=== PATIENT | male | born 1955 | race Caucasian/White ===

== ENCOUNTER 2019-08-22 10:59 | Emergency (ER) | payer MEDICARE, MEDICAID, SELFPAY ==
[2019-08-22 11:15] VITALS: BP 154/81; PULSE 76; RESP 20; TEMP 37.2; O2SAT 99; BMI 31.7
--- NOTE | 2019-08-22 12:02 | ED.ANXIETY ---
HPI - Anxiety <DEYVI Chauhan - Last Filed: 08/22/19 15:00> General Chief Complaint: Anxiety Stated Complaint: exposed to covid,memory loss, neck pain Time Seen by Provider: 08/22/19 11:41 Source: patient Mode of arrival: Ambulatory Limitations: no limitations History of Present Illness HPI narrative: The patient is a 63-year-old male current smoker who denies pertinent medical history who presents with a chief complaint of I have not seen a doctor in 10 years and would like everything checked out.He denies any new or current fevers nausea vomiting or diarrhea. Denies any new or current chest pain or shortness of breath. Denies any recent fall or trauma. States he does feel anxious given that his living situation is changing at this point time. He states he is losing his housing, plans on moving to [facility] with his girlfriend. Denies any thoughts of hurting himself or anybody else. States that he would like a ?complete head-to-toe physical and to make sure I am up-to-date on everything. Related Data Previous Rx's Medication Instructions Recorded hydroxyzine HCl 25 mg PO TID PRN #14 tab 08/22/19 Review of Systems <DEYVI Chauhan - Last Filed: 08/22/19 15:00> Review of Systems Narrative: GENERAL: Denies chills, fatigue, malaise, fever, sweats. HEENT: Denies sinus pain, ear pain, sore throat, difficulty swallowing, dizziness. RESPIRATORY: Denies dyspnea, cough, wheezing, hemoptysis, sputum. CARDIOVASCULAR: Denies chest pain, palpitations, orthopnea, edema, GASTROINTESTINAL: Denies nausea, vomiting, abdominal pain, diarrhea, constipation, melena. : Denies dysuria, frequency, incontinence, hematuria, urinary retention. MUSCULOSKELETAL: denies weakness, joint pain, or bony pain SKIN: Denies rash, skin lesions, or other NEUROLOGIC: Denies weakness, headache, numbness, change in speech, confusion, seizures, incoordination. PSYCHIATRIC: See HPI 12 point review of systems is negative except for those stated above 12 point review of systems is negative except for those stated above Patient History <DEYVI Chauhan - Last Filed: 08/22/19 15:00> Social History Smoking Status: Current every day smoker Smoking Status: Current every day smoker alcohol intake frequency: 0-2 drinks per day Substance Use Type: marijuana Exam <DEYVI Chauhan - Last Filed: 08/22/19 15:00> Narrative Exam Narrative: GENERAL: Unkempt elderly appearing male HEAD: Atraumatic. Normocephalic. No temporal or scalp tenderness. EYES: Pupils equal round and reactive. Extraocular motions intact. No scleral icterus. No injection or drainage. ENT: Nose without bleeding, purulent drainage or septal hematoma. Airway patent. NECK: Trachea midline. No JVD or lymphadenopathy. Supple, nontender, no meningeal signs. CARDIOVASCULAR: Regular rate and rhythm RESPIRATORY: Clear to auscultation. Breath sounds equal bilaterally. No wheezes, rales, or rhonchi. GASTROINTESTINAL: Abdomen soft, non-tender, nondistended. No hepato-splenomegaly, or palpable masses. No guarding. Active bowel sounds all 4 quadrants EXTREMITIES: No clubbing, cyanosis, or edema. No joint tenderness, effusion, or edema noted. BACK: Nontender without deformity or crepitance. No flank tenderness. NEURO: AOx3. Follows commands. Three word recall intact, including at [address] and situation. SKIN: No rash or erythema on visible skin Initial Vital Signs Initial Vital Signs: Vital Signs Temperature 98.9 F 08/22/19 11:15 Pulse Rate 76 08/22/19 11:15 Respiratory Rate 08/22/19 11:15 Blood Pressure 154/81 H 08/22/19 11:15 Pulse Oximetry 99 08/22/19 11:15 <Yary Norman DO - Last Filed: 08/26/19 07:04> Initial Vital Signs Initial Vital Signs: Vital Signs Temperature 98.9 F 08/22/19 11:15 Pulse Rate 76 08/22/19 11:15 Respiratory Rate 08/22/19 11:15 Blood Pressure 154/81 H 08/22/19 11:15 Pulse Oximetry 99 08/22/19 11:15 Scores <DEYVI Chauhan - Last Filed: 08/22/19 15:00> GCS [place] coma scale eye opening: Spontaneous Fang coma scale verbal response: Orientated Fang coma scale motor response: Obey commands [place] coma scale total score: 15 Course <IVANNA Chauhan-BC - Last Filed: 08/22/19 15:00> Orders Ordered: Discontinued Medications Hydroxyzine Pamoate (Vistaril) 25 mg PO NOW ONE Stop: 08/22/19 12:01 Last Admin: 08/22/19 12:13 Dose: 25 mg Documented by: OBDULIA Vital Signs Vital signs: Vital Signs - 8 hr 08/22/19 11:15 08/22/19 13:11 Temperature 98.9 F Pulse Rate 76 65 Respiratory Rate 20 14 Blood Pressure 154/81 H 137/79 Pulse Oximetry 99 99 <Yary Norman DO - Last Filed: 08/26/19 07:04> Orders Ordered: Discontinued Medications Hydroxyzine Pamoate (Vistaril) 25 mg PO NOW ONE Stop: 08/22/19 12:01 Last Admin: 08/22/19 12:13 Dose: 25 mg Documented by: OBDULIA Vital Signs Vital signs: Vital Signs - 8 hr 08/22/19 11:15 08/22/19 13:11 Temperature 98.9 F Pulse Rate 76 65 Respiratory Rate 20 14 Blood Pressure 154/81 H 137/79 Pulse Oximetry 99 99 MDM - Anxiety <IVANNA Chauhan-BC - Last Filed: 08/22/19 15:00> MDM Narrative Medical decision making narrative: The patient is a 63-year-old male who presents with chief complaints of wanting ?a head to toe physical.Emergency department evaluation came back with no acute findings. He is GCS 15. His anxiety responded well to hydroxyzine, so I did give him a prescription. Patient did not want lab work today as I discussed that I was unable to check his cholesterol etcetera. Encouraged him to follow up with primary care provider in the next few days. Given contact information [facility] health resource efficiency manager. Patient has no questions or concerns upon discharge and states understanding of return precautions as well as follow-up care. I discussed come back to the emergency department for any acute concerns such as thoughts of hurting himself or anybody else. Patient was hemodynamically stable, vital signs stable throughout her stay in the emergency department. Discharge Plan Departure Patient Disposition: Home Clinical Impression: Acute anxiety Discharge Date/Time: 08/22/19 13:11 Instructions: DI for Anxiety -- Adult Activity Restrictions/Additional Instructions: Thank you for trusting us with your care today As discussed, your vital signs are did, your memory during exam was very positive. Please follow-up with primary care provider regarding the changes that you have noticed over the past several years. I sent a prescription of hydroxyzine for anxiety to [facility] Please come back to the emergency department for any acute concerns such as thoughts of hurting yourself or anybody else Prescriptions: New hydroxyzine HCl 25 mg tablet 25 mg PO TID PRN (Reason: anxiety ) Qty: 14 RF: 0 Referrals: [facility] [Outside] <Yary Norman DO - Last Filed: 08/26/19 07:04> [facility] ED Attending Ranjana Attestation: I was immediately available in the department for consultation. Documentation has been reviewed. I agree with assessment and plan.
[2019-08-22] MEDS: hydrOXYzine pamoate 25 MG CAPSULE PO (12:13)
[2019-08-22 13:11] VITALS: BP 137/79; PULSE 65; RESP 14; O2SAT 99
== END 2019-08-22 13:11 | disposition home or self-care (01) ==
PROVIDERS: Emergency Provider Nurse Practitioner Family
DX: F41.9 Anxiety disorder, unspecified (principal)
CPT/HCPCS: 93005; 93010; 99282; 99283

== ENCOUNTER 2021-08-21 12:38 | Emergency (ER) | payer OTHER, MEDICAID, SELFPAY ==
[2021-08-21 12:44] VITALS: BP 140/87; PULSE 80; RESP 16; TEMP 36.3; O2SAT 97; BMI 34.3
--- NOTE | 2021-08-21 12:48 | DI.RAD.S_ITS ---
PROCEDURE: XR FOOT LT MIN 3V INDICATIONS: thinks something is in his foot TECHNIQUE: 3 views of the foot were acquired. COMPARISON: None. FINDINGS: Bones: There is a minimally displaced fracture of the tuft of the 2nd distal phalanx. Mild scattered degenerative changes are seen in the toes. There is a small plantar calcaneal enthesophyte. No suspicious bony lesions. Soft tissues: Calcifications are seen along the course of the Achilles tendon. Soft tissue edema is seen in the 2nd toe. IMPRESSION: Minimally displaced fracture of the tuft of the 2nd distal phalanx. Dictated by: Frederic Funes M.D. on 08/21/2021 at 13:19 Approved by: Frederic Funes M.D. on 08/21/2021 at 13:20
[2021-08-21 15:15] VITALS: BP 135/74; PULSE 83; RESP 18; O2SAT 99
[2021-08-21] MEDS: TRIMETH/SULFA 160/800 (DS) TABLET 1 TAB PO (15:26)
[2021-08-21] MEDS: LIDO 1%/SOD BICARB 8.4% (10ML) 10 ML SYRINGE INJ (15:27)
[2021-08-21] MEDS: KETOROLAC 30 MG/ML VIAL 15 MG IM (15:27)
--- NOTE | 2021-08-21 15:27 | ED_ITS ---
HPI - Extremity Injury (Lower) <CM Landers - Last Filed: 08/21/21 18:41> General Chief Complaint: Extremity Injury, Lower Stated Complaint: Something in foot Time Seen by Provider: 08/21/21 14:21 Source: patient Mode of arrival: Wheelchair History of Present Illness HPI Narrative: This is a 65-year-old male who denies any history of diabetes and presents to the emergency department for reported foreign body in the bottom of his left foot. He reports that he stepped on something a few days ago and now has redness and inflammation up his ankle, worsening pain where he stepped on something, states it did not come out. Reports his last tetanus was three or four years ago, reports that the pain is significant and he was unable to sleep last night. He says that he is still ambulatory but it hurts when he bears weight on the plantar aspect of his left foot. He states that he does not have any prior medical history and is ?healthy as a horse.? He has a primary care provider but reports that he is never seen her before. Patient reports that he has been out walking around in the dirt, remembers stepping on something and having pain still there over the last few days but does not remember what it was. Denies any ankle joint pain, endorses a known toe fracture on his 2nd distal phalanx left foot. Patient denies having any medication allergies. Patient reports that he was barefoot when he stepped on something outside and the foreign body did not go through a sole of his shoe. Reports that he walks around barefoot often. Related Data Previous Rx's Medication Instructions Recorded hydroxyzine HCl 25 mg tablet 25 mg PO TID PRN anxiety #14 tabs 08/22/19 hydrocodone 5 mg-acetaminophen 325 1 tab PO BID PRN pain #10 tabs 08/21/21 mg tablet mupirocin 2 % topical ointment 1 applic topical BID 7 days #15 08/21/21 grams sulfamethoxazole 800 1 tab PO BID 7 days #14 tabs 08/21/21 mg-trimethoprim 160 mg tablet (Bactrim DS) Allergies Allergy/AdvReac Type Severity Reaction Status Date / Time No Known Drug Allergies Allergy Verified 08/21/21 12:43 Review of Systems <CM Landers - Last Filed: 08/21/21 18:41> Review of Systems Narrative: General: denies fever, chills Head/Neck: denies headache, neck pain Eyes: denies visual changes, eye pain Cardio: denies chest pain, palpitations Respiratory: denies shortness of breath, cough GI: denies abdominal pain, nausea, vomiting, or diarrhea : denies dysuria, hematuria or flank pain MSK: denies new joint pain, muscle weakness or swelling Skin: denies rash, itching, endorses wound to the bottom of his left foot with possible foreign body, tenderness and pain Neuro: denies numbness, tingling, dizziness Patient History <CM Landers - Last Filed: 08/21/21 18:41> Social History Smoking Status: Current every day smoker Smoking Status: Current every day smoker alcohol intake frequency: 0-2 drinks per day Substance Use Type: marijuana Exam <CM Landers - Last Filed: 08/21/21 18:41> Narrative Exam Narrative: Independently reviewed vitals signs and nursing notes. General: cooperative, comfortable, in no acute distress, feet are soiled, close are slightly dirty, patient does not appear in distress but complains of pain Head: atraumatic, symmetrical facial expressions Neck: supple Eyes: equal round and reactive, EOMI, conjunctiva normal Nose: nares patent, no rhinorrhea Mouth/Throat: moist mucus membranes Cardiovascular: regular rate and rhythm, no peripheral edema, warm extremities Respiratory: normal effort, able to speak in complete sentences, no audible wheezing, stridor, or rales. No retractions or tachypnea. GI: abdomen soft, protuberant, nontender to palpation, nondistended, no masses, no exquisite tenderness with exam, without guarding or rebound. MSK: moves all extremities, neurovascularly intact, no weakness, normal tone, able to move all toes without deficit, no sensation changes, erythematous/edematous pustule verses imbedded foreign body to the plantar aspec t of his left foot, cellulitis along the medial aspect and tracking up his ankle. Skin: brisk capillary refill, plantar aspect of patient's forefoot has approximate 2 cm abscess with darkened center concerning for foreign body, x-ray does not show any evidence of foreign body in this location, injection of lidocaine 1% and small incision with scalpel cause copious purulent drainage to come out of the wound, a visible shard of metal was visible and removed. It was approximately half a cm long, and vertically oriented plantar aspect of his foot. Irrigation of the wound was completed, pus was expressed out of the wound, and no other foreign bodies were visible. Patient reports that it feels much better already. Neuro: normal speech and cognition, A&O x3 Psych: mental status is grossly normal, congruent mood, normal affect, pleasant and cooperative Initial Vital Signs Initial Vital Signs: Vital Signs Temperature 97.3 F L 08/21/21 12:44 Pulse Rate 80 08/21/21 12:44 Respiratory Rate 16 08/21/21 12:44 Blood Pressure 140/87 08/21/21 12:44 Pulse Oximetry 97 08/21/21 12:44 Oxygen Delivery Method 08/21/21 12:44 <Qasim Gracia DO - Last Filed: 08/22/21 14:31> Initial Vital Signs Initial Vital Signs: Vital Signs Temperature 97.3 F L 08/21/21 12:44 Pulse Rate 80 08/21/21 12:44 Respiratory Rate 16 08/21/21 12:44 Blood Pressure 140/87 08/21/21 12:44 Pulse Oximetry 97 08/21/21 12:44 Oxygen Delivery Method 08/21/21 12:44 Procedures <CM Landers - Last Filed: 08/21/21 18:41> Foreign Body OTHER Time Out Performed: yes Foreign Body Removal Site: foot Description of foreign body: other (metal) Sedation/Analgesia: none Technique: manual removal, removal with forceps, incision made to facilitate removal and irrigation Confirmed by:: direct visualization, radiograph and palpation Complications: none Post-procedure exam: awake, alert, normal BP, normal HR and normal O2 sat Neurovascular: normal distal pulse, normal capillary fill, distal light touch sensation intact, distal motor function normal and no change from pre-procedure Orthopedic Splinting/Casting Injury #1: Lower Extremity Injury Location: foot Lower Extremity Immobilizer: post-op shoe Post splinting neuro exam: intact and no change Post splinting vascular exam: no change Placed by: Nursing Course <CM Landers - Last Filed: 08/21/21 18:41> Orders Ordered: Discontinued Medications Diphtheria/Tetanus/Acell Pertussis (Tet,Diph,Pertuss(Acell),Vac/Pf 0.5 Ml Syringe) 0.5 ml IM .ONCE ONE Stop: 08/21/21 15:54 Last Admin: 08/21/21 15:59 Dose: 0.5 ml Documented By: MEET Ketorolac Tromethamine (Ketorolac 30 Mg/Ml Vial) 15 mg IM NOW ONE Stop: 08/21/21 15:20 Last Admin: 08/21/21 15:27 Dose: 15 mg Documented By: ESTRADA Lidocaine/Sodium Bicarbonate (Lido 1%/Sod Bicarb 8.4% (10ml) 10 Ml Syringe) 10 ml INJ NOW ONE Stop: 08/21/21 15:20 Last Admin: 08/21/21 15:27 Dose: 10 ml Documented By: ESTRADA Trimethoprim/Sulfamethoxazole (Trimeth/Sulfa 160/800 (Ds) Tablet) 1 tab PO NOW ONE Stop: 08/21/21 15:20 Last Admin: 08/21/21 15:26 Dose: 1 tab Documented By: ESTRADA Vital Signs Vital signs: Vital Signs - 8 hr 08/21/21 12:44 08/21/21 15:15 Temperature 97.3 F L Pulse Rate 80 83 Respiratory Rate 16 18 Blood Pressure 140/87 135/74 Pulse Oximetry 97 99 Oxygen Delivery Method Room Air Room Air <Qasim Gracia DO - Last Filed: 08/22/21 14:31> Orders Ordered: Discontinued Medications Diphtheria/Tetanus/Acell Pertussis (Tet,Diph,Pertuss(Acell),Vac/Pf 0.5 Ml Syringe) 0.5 ml IM .ONCE ONE Stop: 08/21/21 15:54 Last Admin: 08/21/21 15:59 Dose: 0.5 ml Documented By: MEET Ketorolac Tromethamine (Ketorolac 30 Mg/Ml Vial) 15 mg IM NOW ONE Stop: 08/21/21 15:20 Last Admin: 08/21/21 15:27 Dose: 15 mg Documented By: ESTRADA Lidocaine/Sodium Bicarbonate (Lido 1%/Sod Bicarb 8.4% (10ml) 10 Ml Syringe) 10 ml INJ NOW ONE Stop: 08/21/21 15:20 Last Admin: 08/21/21 15:27 Dose: 10 ml Documented By: ESTRADA Trimethoprim/Sulfamethoxazole (Trimeth/Sulfa 160/800 (Ds) Tablet) 1 tab PO NOW ONE Stop: 08/21/21 15:20 Last Admin: 08/21/21 15:26 Dose: 1 tab Documented By: ESTRADA Vital Signs Vital signs: Vital Signs - 8 hr 08/21/21 12:44 08/21/21 15:15 Temperature 97.3 F L Pulse Rate 80 83 Respiratory Rate 16 18 Blood Pressure 140/87 135/74 Pulse Oximetry 97 99 Oxygen Delivery Method Room Air Room Air MDM - Extremity Injury (Lower) <Nilsa Farnsworth, [facility] - Last Filed: 08/21/21 18:41> Imaging Data Extremity x-ray #1: Radiologist's Impression: PROCEDURE:? XR FOOT LT MIN 3V ? INDICATIONS:? thinks something is in his foot ? TECHNIQUE:? 3 views of the foot were acquired.? ? COMPARISON:? None. ? FINDINGS:? ? Bones:? There is a minimally displaced fracture of the tuft of the 2nd distal phalanx.? Mild scattered degenerative changes are seen in the toes.? There is a small plantar calcaneal enthesophyte.? No suspicious bony lesions.? ? Soft tissues:? Calcifications are seen along the course of the Achilles tendon.? Soft tissue edema is seen in the 2nd toe. ? ? IMPRESSION:? Minimally displaced fracture of the tuft of the 2nd distal phalanx. ? ? ? Dictated by: Frederic Funes M.D. on 08/21/2021 at 13:19 ? ? Approved by: Frederic Funes M.D. on 08/21/2021 at 13:20 ? [facility] Narrative Medical decision making narrative: This is a 65-year-old male presents to the emergency department for a foreign body in the plantar aspect of his left forefoot. Patient does not have a history of diabetes, denies taking any medications at baseline, x-ray was obtained of his left foot for concern about stepping on something sharp barefoot approximately four days ago. Patient has a known tuft fracture of the 2nd distal phalanx, foot x-ray identified this but did not show any foreign body, showed scattered degenerative changes in the toes and a small plantar calcaneal enthesophyte., patient's foot was soaked in Hibiclens, it was scrubbed, he had visibly soiled feet. He had a 2 cm abscess in the plantar aspect of his forefoot/midfoot, had a darkened center with concern for foreign body, a small incision was made after numbed up with 1 mL of lidocaine, pus came out of the wound, this was obtained for culture. When squeezing up the remainder of drainage from the wound, a small metal foreign body was removed, it was approximately half a cm and vertically oriented in the plaster aspect of his foot. States that he stepped on this barefoot, did not go through all of his shoe. Denies any history of MRSA, denies any other skin infections. Wound culture g stain shows GPCs. His tetanus was updated since he did not remember exactly when he had his last one. Patient has mild amount of cellulitis coming up the medial ankle, no other wounds. Patient was fitted in a postop shoe, encouraged to keep this clean, wash it twice a day, cover with mupirocin ointment which he was prescribed. He was given Bactrim b.i.d. for one week for wound prophylaxis and treatment of his cellulitis. He was given stockroom coordinator contact information and encouraged to follow-up in the next 2-3 days with Podiatry for recheck. Patient states understanding, was given strict return precautions, will return to the emergency department for worsening changes. Patient is appropriate and amenable to discharge home. Vital signs are stable on repeat examination is unremarkable. Patient has been informed of results. Patient has been given strict return to ER precautions for any new or worsening symptoms. Patient understands to follow up closely with outpatient providers as instructed. Patient understands plan and agrees to discharge home. All questions and concerns answered at this time. Discharge Plan Departure Patient Disposition: Home Clinical Impression: Foreign body in foot, left Qualifiers: Encounter type: initial encounter Qualified Code(s): S90.852A - Superficial foreign body, left foot, initial encounter Instructions: DI for Removal of Foreign Body From Skin Activity Restrictions/Additional Instructions: *You have been diagnosed with a small piece of metal was removed from your left foot. Please keep your foot clean, wash it with soap and water and do not soak it at least once per day. Please avoid walking around barefoot until this is fully healed. Keep it covered with a Band-Aid and apply a little antibiotic ointment to help keep the germs out. Take this antibiotic twice a day for the next seven days, follow-up with Podiatry as needed. It is possible that there are more small pieces of metal in there that I did not see however I cleaned it out fairly well and did not find any other pieces. Please keep your foot elevated, ice it, drink plenty of water, return to the emergency department for any worsening signs of infection. Please wear the postop shoe with a clean sock and something reasonable in between for it to drain on. *What to do: *Please continue to take your regular medications as directed. [ x] New medication prescriptions sent to your pharmacy: [] [ ] New medication written as a paper prescription [ ] No new medications given *Please follow up with your primary care provider in 2-3 days, call for an appointment. Let them know you were seen in the Emergency Department and that we asked that you be seen for follow-up. We will electronically transmit a record of today's note if your PCP is in our system *If you do not have a primary care provider please contact [phone] to establish care with one of [facility] primary care providers. *Return to Emergency Department if you should have any new, worsening or concerning symptoms, such as [fever greater than 101F, chills, worsening pain, persistent vomiting or other bothersome symptoms] Prescriptions: New sulfamethoxazole-trimethoprim [Bactrim DS] 800-160 mg tablet 1 tab PO BID 7 Days Qty: 14 0RF mupirocin 2 % ointment 1 applic topical BID 7 Days Qty: 15 0RF hydrocodone-acetaminophen 5-325 mg tablet 1 tab PO BID PRN (Reason: pain) Qty: 10 0RF No Action hydroxyzine HCl 25 mg tablet 25 mg PO TID PRN (Reason: anxiety ) Qty: 14 0RF Referrals: Daniel Roa DPM [Physician] - 3-5 days Visit Report Forms: Patient Portal/API <Qasim Gracia DO - Last Filed: 08/22/21 14:31> Cosign ED Attending Aaliyahature Attestation: I was immediately available in the department for consultation. This documentation has been reviewed and I agree with assessment and plan. Supervised by Qasim Gracia DO
[2021-08-21] MEDS: TET,DIPH,PERTUSS(ACELL),VAC/PF 0.5 ML SYRINGE IM (15:59)
== END 2021-08-21 16:00 | disposition home or self-care (01) ==
PROVIDERS: Emergency Provider Nurse Practitioner Critical Care Medicine
DX: S90.852A Superficial foreign body, left foot, initial encounter (principal)
CPT/HCPCS: 10120; 73630; 87070; 87075; 87077; 87147; 87186; 87205; 90471; 96372; 99284; 90715; J1885

== ENCOUNTER 2021-11-17 14:24 | Emergency (ER) | payer OTHER, MEDICAID, SELFPAY ==
[2021-11-17 14:45] VITALS: BP 119/74; PULSE 83; RESP 24; TEMP 37.1; O2SAT 97; BMI 31.7
--- NOTE | 2021-11-17 14:56 | DI.RAD.S_ITS ---
PROCEDURE: XR RIBS LT MIN 3V W CXR1V INDICATIONS: fall, right rib pain TECHNIQUE: 2 views of the left ribs were acquired, along with a single view chest. COMPARISON: [facility], , CHEST 2VW, 04/20/2012, 12:30. FINDINGS: Surgical changes and devices: None. Bones and chest wall: A marker is placed upon the area of clinical concern. Within this region, there is a mildly displaced fracture of the left 10th rib. No rib fractures are seen elsewhere. (The 12th pair of ribs is vestigial.) No suspicious bony lesions. Age-appropriate bony degenerative changes are seen. Overlying soft tissues appear unremarkable. Lungs and pleura: No pleural effusions or pneumothorax. Lungs appear clear. Mediastinum: Mediastinal contours appear normal. Heart size is normal. IMPRESSION: There is a mildly displaced fracture of the left 10th rib. No associated pneumothorax is seen by plain film. Dictated by: Grzegorz Dickerson M.D. on 11/17/2021 at 15:07 Approved by: Grzegorz Dickerson M.D. on 11/17/2021 at 15:09
--- NOTE | 2021-11-17 15:32 | PC.NURSE ---
Patient went to mail clerk and stated he couldn't breathe and needed oxygen. helped patient back to stretcher. He is very loudly moaning and groaning. Vital signs are stable, oxygen 98% on room air. Patient does appear short of breath and audible wheezing is heard. Respiratory therapy called and EKG performed. Provider notified.
--- NOTE | 2021-11-17 16:22 | ED.FALL ---
HPI - Fall General Chief Complaint: Fall Stated Complaint: fall, difficulty breathing, Lt side back pain Time Seen by Provider: 11/17/21 16:17 Source: patient Mode of arrival: Wheelchair History of Present Illness HPI Narrative: 66-year-old male who states that he was in his kitchen and fell and landed on his left flank on a metal stair. Has significant discomfort with taking a deep breath on his left side. In quite a bit pain. No fevers. No abdominal pain. No other injuries event. Did not hit his head. Prior to the fall did not have palpitations denies shortness of breath nor chest pain. He reports no other injuries from the event except for discomfort along his left flank. Related Data Previous Rx's Medication Instructions Recorded hydroxyzine HCl 25 mg tablet 25 mg PO TID PRN anxiety #14 tabs 08/22/19 hydrocodone 5 mg-acetaminophen 325 1 tab PO BID PRN pain #10 tabs 08/21/21 mg tablet albuterol sulfate 90 mcg/actuation 2 puff inhalation Q6H PRN 11/17/21 aerosol inhaler shortness of breath or wheezing #8.5 grams hydrocodone 5 mg-acetaminophen 325 1 tab PO Q4-6H PRN pain #10 tabs 11/17/21 mg tablet Allergies Allergy/AdvReac Type Severity Reaction Status Date / Time No Known Drug Allergies Allergy Verified 11/17/21 14:49 Review of Systems Review of Systems ROS Unobtainable: All systems reviewed & are unremarkable except as noted in HPI and below Patient History Social History Smoking Status: Current every day smoker Smoking Status: Current every day smoker alcohol intake frequency: 0-2 drinks per day Substance Use Type: marijuana Exam Initial Vital Signs Initial Vital Signs: Vital Signs Temperature 98.8 F 11/17/21 14:45 Pulse Rate 83 11/17/21 14:45 Respiratory Rate 24 11/17/21 14:45 Blood Pressure 119/74 11/17/21 14:45 Pulse Oximetry 97 11/17/21 14:45 Oxygen Delivery Method 11/17/21 14:45 Const General: No comfortable HENMT Head: normal to inspection and normocephalic Chest Other: No anterior chest wall discomfort on the left. Resp Effort & Inspection: no respiratory distress and not tachypneic Other: Splinting Cardio Rate: regular rate GI Other: No abdominal tenderness, Back/Spine/Pelvis Cervical Spine: No cervical spinal tenderness Thoracic/Lumbar Spine: No thoracic spinal tenderness and No lumbar spinal tenderness Skin Other: Bruising along the left flank/paraspinal region on the back Neuro General: patient alert, patient awake and moves all extremities Extrem General: capillary refill normal Psych Appearance: grossly normal Course Orders Ordered: ED Orders 11/17/21 14:56 XR ribs LT min 3V w CXR1V Stat 11/17/21 15:37 EKG-12 Lead Stat Discontinued Medications Hydrocodone Bitart/Acetaminophen (Hydrocodone/Acet 5/325 Tablet) 1 tab PO NOW ONE Stop: 11/17/21 16:23 Last Admin: 11/17/21 16:29 Dose: 1 tab Documented By: EDUARDO Vital Signs Vital signs: Vital Signs - 8 hr 11/17/21 14:45 11/17/21 16:34 Temperature 98.8 F Pulse Rate 83 82 Respiratory Rate 24 22 Blood Pressure 119/74 128/88 Pulse Oximetry 97 98 Oxygen Delivery Method Room Air Room Air MDM - Fall Imaging Data Rib x-ray: Radiologist's Impression: [address] [address] XRay Report Signed Patient: Gunner Vazquez MR#: [id number] : 1955 Acct:[id number] Age/Sex: 66 / M Date of Service: 11/17/21 Loc: ED Accession Number: [id number] ?? Procedure: XR ribs LT min 3V w CXR1V Ordering Provider: Moises La D.O. PROCEDURE:? XR RIBS LT MIN 3V W CXR1V ? INDICATIONS:? fall, right rib pain ? TECHNIQUE:? 2 views of the left ribs were acquired, along with a single view chest.? ? COMPARISON:? [facility], CR, CHEST 2VW, 04/20/2012, 12:30. ? FINDINGS:? ? Surgical changes and devices:? None.? ? Bones and chest wall:? A marker is placed upon the area of clinical concern.? Within this region, there is a mildly displaced fracture of the left 10th rib. ? No rib fractures are seen elsewhere.? (The 12th pair of ribs is vestigial.) ? No suspicious bony lesions.? Age-appropriate bony degenerative changes are seen.? Overlying soft tissues appear unremarkable.? ? Lungs and pleura:? No pleural effusions or pneumothorax.? Lungs appear clear.? ? Mediastinum:? Mediastinal contours appear normal.? Heart size is normal.? ? ? IMPRESSION:? ? There is a mildly displaced fracture of the left 10th rib. ? No associated pneumothorax is seen by plain film. ? ? Dictated by: Grzegorz Dickerson M.D. on 11/17/2021 at 15:07 ? ? Approved by: Grzegorz Dickerson M.D. on 11/17/2021 at 15:09?? ECG Data Attestation: I personally reviewed and interpreted this ECG as follows: Interpretation: Sinus rhythm Ventricular rate is 76 Normal axis Normal QRS Normal QTC No ST T wave changes MDM Narrative Medical decision making narrative: Patient has pinpoint tenderness over his left flank where the bruising is located and also where the rib fractures located on the x-rays. He is clear lung exam. He has no abdominal tenderness. This was a mechanical fall per his report. We discussed rib fractures. States he has had rib fractures in the past. He understands that is going to hurt. Will send home with an incentive spirometer and also pain medication. He was given return precautions. He expressed understanding and agreement. Discharge Plan Departure Patient Disposition: Home Clinical Impression: Fracture of rib of left side Instructions: DI for Rib Fracture Activity Restrictions/Additional Instructions: Use the pain medication as needed. Also recommend you use the incentive spirometer as directed. Return to the emergency department for any new or worsening symptoms. Prescriptions: New hydrocodone-acetaminophen 5-325 mg tablet 1 tab PO Q4-6H PRN (Reason: pain) Qty: 10 0RF albuterol sulfate 90 mcg/actuation HFA aerosol inhaler 2 puff inhalation Q6H PRN (Reason: shortness of breath or wheezing) Qty: 8.5 0RF No Action hydrocodone-acetaminophen 5-325 mg tablet 1 tab PO BID PRN (Reason: pain) Qty: 10 0RF hydroxyzine HCl 25 mg tablet 25 mg PO TID PRN (Reason: anxiety ) Qty: 14 0RF Visit Report Forms: Patient Portal/API
[2021-11-17] MEDS: HYDROCODONE/ACET 5/325 TABLET 1 TAB PO (16:29)
[2021-11-17 16:34] VITALS: BP 128/88; PULSE 82; RESP 22; O2SAT 98
== END 2021-11-17 16:39 | disposition home or self-care (01) ==
PROVIDERS: Emergency Provider Emergency Medicine
DX: S22.32XA Fracture of one rib, left side, initial encounter for closed fracture (principal); R07.9 Chest pain, unspecified; W18.30XA Fall on same level, unspecified, initial encounter
CPT/HCPCS: 71101; 93005; 93010; 99283

== ENCOUNTER 2022-02-12 14:02 | Emergency (ER) | payer OTHER, MEDICAID, SELFPAY ==
[2022-02-12 14:13] VITALS: BP 134/75; PULSE 90; RESP 18; TEMP 36.5; O2SAT 97; BMI 33.5
[2022-02-12] MEDS: PROPARACAINE 0.5% OPHTH SOL 1 DROPS EYE-LEFT (15:01)
[2022-02-12] MEDS: ERYTHROMYCIN OPHTH 1 GM OINT 1 APPLIC EYE-LEFT (15:02)
[2022-02-12] MEDS: FLUORESCEIN 1 MG STRIP EYE-LEFT (15:02)
--- NOTE | 2022-02-12 15:12 | ED.EYEPROB ---
HPI - Eye Problem General Chief complaint: Eye Problems Stated complaint: possible eye infection Time Seen by Provider: 02/12/22 14:51 Source: patient Mode of arrival: Ambulatory History of Present Illness HPI Narrative: This is a 66-year-old gentleman presents to the emergency department complaining of right eye redness for 2 months while he was not gel and states that it is ongoing and he has been out of skilled nursing for 1 month but goes back tomorrow and has not treated it and wants it to be treated with antibiotics. He denies any recent trauma, foreign body sensation, allergies, fever, chills, upper respiratory infection, cough, or congestion. Denies any vision changes, headache, or eye pain with eye movement. On chart review it appears that patient has history of MRSA. He denies any recent antibiotics, denies any allergies to medications, denies any discharge coming from his eye. Related Data Previous Rx's Medication Instructions Recorded hydroxyzine HCl 25 mg tablet 25 mg PO TID PRN anxiety #14 tabs 08/22/19 hydrocodone 5 mg-acetaminophen 325 1 tab PO BID PRN pain #10 tabs 08/21/21 mg tablet albuterol sulfate 90 mcg/actuation 2 puff inhalation Q6H PRN 11/17/21 aerosol inhaler shortness of breath or wheezing #8.5 grams hydrocodone 5 mg-acetaminophen 325 1 tab PO Q4-6H PRN pain #10 tabs 11/17/21 mg tablet Allergies Allergy/AdvReac Type Severity Reaction Status Date / Time No Known Drug Allergies Allergy Verified 11/17/21 14:49 Review of Systems Review of Systems ROS Unobtainable: All systems reviewed & are unremarkable except as noted in HPI and below Patient History Social History Smoking Status: Current every day smoker Smoking Status: Current every day smoker tobacco type: cigarettes alcohol intake frequency: a few times a week Substance Use Type: marijuana Exam Narrative Exam Narrative: Reviewed vitals signs and nursing notes. General: cooperative, comfortable, in no acute distress, well groomed HEENT: symmetrical facial expressions, moist mucous membranes, right conjunctival injection, no periorbital edema, EOMI, right eye fluorescein exam with Wood's lamp after proparacaine without fluorescein uptake, no evidence of corneal abrasion, without discharge, mild conjunctival injection lateral to the cornea approximately 3 mm x 2 mm, visual acuity is normal and equal bilaterally Skin: brisk capillary refill, without pallor or erythema Neuro: normal speech and cognition, A&O x3, ambulatory, clear speech Psych: mental status is grossly normal, congruent mood, normal affect, pleasant and cooperative Initial Vital Signs Initial Vital Signs: Vital Signs Temperature 97.7 F 02/12/22 14:13 Pulse Rate 90 02/12/22 14:13 Respiratory Rate 18 02/12/22 14:13 Blood Pressure 134/75 02/12/22 14:13 Pulse Oximetry 97 02/12/22 14:13 Oxygen Delivery Method 02/12/22 14:13 Course Orders Ordered: ED Orders 02/12/22 14:35 Eye culture Stat Discontinued Medications Erythromycin (Erythromycin Ophth 1 Gm Oint) 1 applic EYE-LEFT NOW ONE Stop: 02/12/22 15:00 Last Admin: 02/12/22 15:02 Dose: 1 applic Documented By: ESTRADA Fluorescein Sodium (Fluorescein 1 Mg Strip) 1 mg EYE-LEFT NOW ONE Stop: 02/12/22 14:59 Last Admin: 02/12/22 15:02 Dose: 1 mg Documented By: ESTRADA Proparacaine HCl (Proparacaine 0.5% Ophth Melva) 1 drops EYE-LEFT NOW ONE Stop: 02/12/22 14:59 Last Admin: 02/12/22 15:01 Dose: 1 drop Documented By: ESTRADA Vital Signs Vital signs: Vital Signs - 8 hr 02/12/22 14:13 Temperature 97.7 F Pulse Rate 90 Respiratory Rate 18 Blood Pressure 134/75 Pulse Oximetry 97 Oxygen Delivery Method Room Air MDM - Eye Problem MDM Narrative Medical decision making narrative: This is a 58 year male presents to the emergency department complaining of right eye conjunctival injection for 2 months or longer and is to return to skilled nursing tomorrow and wanted to have evaluation of this prior to going back to skilled nursing. He is requesting a note stating that it is contagious so that he does not have to go. I culture obtained however no discharge conjunctiva, fluorescein exam without corneal abrasion, without ferning or other fluorescein uptake. No visual acuity deficit, patient is ambulatory, has swollen at staff members for not making appointments for him or writing a note for him to not go to skilled nursing. He was discharged with erythromycin ointment, will follow-up on culture, patient does have history of MRSA however there is no wound, discharge, or erythema of the eyelids. Differential diagnosis includes viral conjunctivitis, bacterial conjunctivitis, hordeolum, chalazion, foreign body, ingrowing eyelash, corneal abrasion, trauma. Patient denies having a cough, denies wanting a respiratory panel. Will discharge with erythromycin ointment and strict return precautions for worsening. Patient is appropriate and amenable to discharge home. Vital signs are stable on repeat examination is unremarkable. Patient has been informed of results. Patient has been given strict return to ER precautions for any new or worsening symptoms. Patient understands to follow up closely with outpatient providers as instructed. Patient understands plan and agrees to discharge home. All questions and concerns answered at this time. Discharge Plan Departure Patient Disposition: Home Clinical Impression: Conjunctivitis Qualifiers: Conjunctivitis type: chronic Chronic conjunctivitis type: unspecified Laterality: right Qualified Code(s): H10.401 - Unspecified chronic conjunctivitis, right eye Instructions: Conjunctivitis Activity Restrictions/Additional Instructions: *You have been diagnosed with conjunctivitis of your right eye. Please use the antibiotic ointment 4 times daily for the next 7 days. May continue if ongoing. Please immediately follow-up with ophthalmology if you have vision changes, worsening eye pain, are unable to open your eye or other emergent complaint. Please keep your fingers out of your eyes, stay hydrated, take Tylenol as needed for your pain every 6 hours. We will call you in 2 days if your culture grows another type of bacteria. I will call you later today if the initial Gram stain shows that you need a different medication. You have conjunctivitis, this can be contagious, you started antibiotics on 02/12/2022. *What to do: *Please continue to take your regular medications as directed. [ ] New medication prescriptions sent to your pharmacy: [ ] [ x] New medication given in the emergency department [ ] No new medications given *Please follow up with your primary care provider in 2-3 days, call for an appointment. Let them know you were seen in the Emergency Department and that we asked that you be seen for follow-up. We will electronically transmit a record of today's note if your PCP is in our system *If you do not have a primary care provider please contact [phone] to establish care with one of the [facility] primary care providers. *Return to Emergency Department if you should have any new, worsening, or concerning symptoms, such as [fever greater than 101F, chills, worsening pain, persistent vomiting or other bothersome symptoms]. Prescriptions: No Action hydrocodone-acetaminophen 5-325 mg tablet 1 tab PO BID PRN (Reason: pain) Qty: 10 0RF hydroxyzine HCl 25 mg tablet 25 mg PO TID PRN (Reason: anxiety ) Qty: 14 0RF hydrocodone-acetaminophen 5-325 mg tablet 1 tab PO Q4-6H PRN (Reason: pain) Qty: 10 0RF albuterol sulfate 90 mcg/actuation HFA aerosol inhaler 2 puff inhalation Q6H PRN (Reason: shortness of breath or wheezing) Qty: 8.5 0RF Referrals: Irineo Dawson MD [Physician] - Stand Alone Forms: Patient Portal/API
--- NOTE | 2022-02-12 15:24 | PC.NURSE ---
1405 went to dc pt explained to pt and visitor use of erythromycin ointment, gave dc papers, instructed in 3-4 days eye culture will come back and we will contact if positive. explained need to fu with eye doctor, they can see whichever they choose either the one in here at [facility] or one in [facility] and its up to them to follow up for full eye exam that is not done in er. pt stated you dont have to be such a bitch after informing pt and visitor i cannot make a follow up appointment and he still needs to see eye doctor.
== END 2022-02-12 15:05 | disposition home or self-care (01) ==
PROVIDERS: Emergency Provider Nurse Practitioner Critical Care Medicine
DX: H10.401 Unspecified chronic conjunctivitis, right eye (principal)
CPT/HCPCS: 87070; 87077; 87205; 99282

== ENCOUNTER 2022-06-30 14:24 | Emergency (ER) | payer OTHER, MEDICAID, SELFPAY ==
[2022-06-30 14:31] VITALS: BP 145/63; PULSE 87; RESP 20; O2SAT 98; BMI 33.5
--- NOTE | 2022-06-30 16:15 | ED.WOUNDLAC ---
HPI - Wound/Laceration General Chief Complaint: Wound/Laceration Stated Complaint: thinks he has a staph infection Time Seen by Provider: 06/30/22 15:46 Source: patient Mode of arrival: Ambulatory History of Present Illness HPI narrative: 66-year-old male daily smoker with history of prior skin infections presents with a family friend and a chief complaint of concerns of a recurrence of his skin infection that previously had been related to staph. He has a few small, perhaps dime-sized lesions that have become slightly erythematous, minimally painful with occasional drainage, on the dorsum of his right arm, few on anterior abdomen and right leg. Systemically he has no complaints such as fever, chills nor nausea or vomiting. Related Data Previous Rx's Medication Instructions Recorded hydroxyzine HCl 25 mg tablet 25 mg PO TID PRN anxiety #14 tabs 08/22/19 hydrocodone 5 mg-acetaminophen 325 1 tab PO BID PRN pain #10 tabs 08/21/21 mg tablet albuterol sulfate 90 mcg/actuation 2 puff inhalation Q6H PRN 11/17/21 aerosol inhaler shortness of breath or wheezing #8.5 grams hydrocodone 5 mg-acetaminophen 325 1 tab PO Q4-6H PRN pain #10 tabs 11/17/21 mg tablet doxycycline hyclate 100 mg tablet 100 mg PO BID #20 tabs 06/30/22 Allergies Allergy/AdvReac Type Severity Reaction Status Date / Time No Known Drug Allergies Allergy Verified 06/30/22 14:31 Review of Systems Review of Systems Narrative: GENERAL: See HPI HEENT: Denies sinus pain, ear pain, sore throat, difficulty swallowing, dizziness. RESPIRATORY: Denies dyspnea, cough, wheezing, hemoptysis, sputum. CARDIOVASCULAR: Denies chest pain, palpitations, orthopnea, edema, GASTROINTESTINAL: Denies nausea, vomiting, abdominal pain, diarrhea, constipation, melena. : Denies dysuria, frequency, incontinence, hematuria, urinary retention. MUSCULOSKELETAL: denies weakness, joint pain, or bony pain SKIN: See HPI NEUROLOGIC: Denies weakness, headache, numbness, change in speech, confusion, seizures, incoordination. PSYCHIATRIC: No concerning psychosocial issues. 12 point review of systems is negative except for those stated above Patient History Social History Smoking Status: Current every day smoker Smoking Status: Current every day smoker tobacco type: cigarettes alcohol intake frequency: holidays/special occasions only Substance Use Type: marijuana Exam Narrative Exam Narrative: GENERAL: [] year old patient appears stated age. Well-developed patient, in mild distress. HEAD: Atraumatic. Normocephalic. EYES: Pupils equal round and reactive. Extraocular motions intact. No scleral icterus. No injection or drainage. ENT: Nose without bleeding, purulent drainage. Throat without erythema, tonsillar hypertrophy or exudate. Airway patent. NECK: Trachea midline. Non tender CARDIOVASCULAR: Regular rate and rhythm without murmurs, gallops, or rubs. RESPIRATORY: Clear to auscultation. Breath sounds equal bilaterally. No wheezes, rales, or rhonchi. GASTROINTESTINAL: Abdomen soft, non-tender, nondistended. EXTREMITIES: No edema or joint tenderness. BACK: Nontender without deformity or crepitance. No flank tenderness. NEURO: AOx3. SKIN: Few 1-2 cm slightly excoriated erythematous tender lesions with minimal surrounding erythema, no fluctuance or induration to suggest abscess, these findings are most consistent with infected wounds Initial Vital Signs Initial Vital Signs: Vital Signs Pulse Rate 87 06/30/22 14:31 Respiratory Rate 20 06/30/22 14:31 Blood Pressure 145/63 H 06/30/22 14:31 Pulse Oximetry 98 06/30/22 14:31 Oxygen Delivery Method Room Air 06/30/22 14:31 Course Vital Signs Vital signs: Vital Signs - 8 hr 06/30/22 14:31 Pulse Rate 87 Respiratory Rate 20 Blood Pressure 145/63 H Pulse Oximetry 98 Oxygen Delivery Method Room Air MDM - Wound/Laceration MDM Narrative Medical decision making narrative: [66] year old patient presents with concern for infected skin wounds Multiple etiologies for patient's symptoms considered including, but not limited to: [infected wounds vs. cellulitis vs. abscess vs. other] Prior Charts reviewed in our EMR Primary Historian: patient Patient with prior staph related skin infections presents with a few infected wounds, no systemic complaints, no findings consistent with abscess. No indications for procedures or further workup Findings and discharge diagnosis discussed with patient/family followed by verbalization of understanding Return precautions discussed with patient/family whom verbalize understanding of diagnosis and plan Discharge Plan Departure Patient Disposition: Home Clinical Impression: Skin abscess Instructions: DI for Staph Infection Activity Restrictions/Additional Instructions: *You have been diagnosed with [skin infection, most likely staff.] *What to do: *Please continue to take your regular medications as directed. [ x] New medication prescriptions sent to your pharmacy: [ [facility] ] [ ] New medication written as a paper prescription [ ] No new medications given *Please follow up with your primary care provider in 2-3 days, call for an appointment. Let them know you were seen in the Emergency Department and that we ask that you be seen in follow up. We will electronically transmit a record of today's note if your PCP is in our system *Return to Emergency Department if you should have any new, worsening or concerning symptoms, such as [fever greater than 101 F, shaking chills, worsening pain, persistent vomiting or other bothersome symptoms] Prescriptions: New doxycycline hyclate 100 mg tablet 100 mg PO BID Qty: 20 0RF No Action hydrocodone-acetaminophen 5-325 mg tablet 1 tab PO BID PRN (Reason: pain) Qty: 10 0RF hydroxyzine HCl 25 mg tablet 25 mg PO TID PRN (Reason: anxiety ) Qty: 14 0RF hydrocodone-acetaminophen 5-325 mg tablet 1 tab PO Q4-6H PRN (Reason: pain) Qty: 10 0RF albuterol sulfate 90 mcg/actuation HFA aerosol inhaler 2 puff inhalation Q6H PRN (Reason: shortness of breath or wheezing) Qty: 8.5 0RF Stand Alone Forms: Patient Portal/API
[2022-06-30 16:46] VITALS: BP 148/77; PULSE 77; RESP 16; O2SAT 97
== END 2022-06-30 16:52 | disposition home or self-care (01) ==
PROVIDERS: Emergency Provider Emergency Medicine
DX: L02.413 Cutaneous abscess of right upper limb (principal); L02.211 Cutaneous abscess of abdominal wall; L02.415 Cutaneous abscess of right lower limb
CPT/HCPCS: 99283